=== PATIENT | male | born 1990 | race Caucasian/White ===

== ENCOUNTER 2019-12-23 22:27 | Emergency (ER) | payer OTHER ==
[~2019-12-23 22:27] MED LIST: CLARITIN-D 12 H1 TAB PO; DOXYCYCLINE MO100 MG PO; PRILOSEC20 MG PO
[2019-12-23] MEDS ORDERED: SEPTDS PO (23:14)
== END 2019-12-23 23:42 | disposition home or self-care (01) ==
LOC: ED 22:27
DX: S01.512A Laceration without foreign body of oral cavity, initial encounter (principal); K21.9 Gastro-esophageal reflux disease without esophagitis; Z88.8 Allergy status to other drugs, medicaments and biological substances; W19.XXXA Unspecified fall, initial encounter; Y93.89 Activity, other specified; Y92.89 Other specified places as the place of occurrence of the external cause; Y99.8 Other external cause status